=== PATIENT | male | born 1945 | race Caucasian/White ===

== ENCOUNTER 2017-05-23 13:37 | Inpatient (IN) | payer OTHER ==
[2017-05-23] VITALS (9 sets, daily range): BP systolic 113–143; BP diastolic 56–91
[~2017-05-23] VITALS: Ht 167.6 cm; Wt 108.0 kg
[2017-05-23 13:51] LABS: BASOPHIL COUNT 0.1 K/uL (0-0.1); EOSINOPHIL (%) 1.4 % (0-5); EOSINOPHIL COUNT 0.2 K/uL (0-0.3); HEMATOCRIT 43.5 % (38.0-50.0); IMMATURE GRANULOCYTE (%) 0.5 % (0.0-0.7); IMMATURE GRANULOCYTE COUNT 0.1 K/uL; INSTRUMENT ABS NEUTROPHIL CT 8.5 K/uL; LYMPHOCYTE COUNT 3.3 K/uL (1.0-2.8); MCH 29.3 PG (29.0-34.0); MCHC 33.1 G/DL (30.0-36.0); MCV 88.4 FL (86-99); MEAN PLAT.VOLUME 10.6 uM^3 (9.0-12.4); MONOCYTE (%) 5.5 % (3-12); MONOCYTE COUNT 0.7 K/uL (0-0.8); NEUTROPHIL (%) 66.1 % (45-76); NEUTROPHIL COUNT 8.5 K/uL (1.8-6.4); PLATELET COUNT 202 K/uL (156-360); RBC DIS.WIDTH-CV 13.7 % (11.8-14.6); RBC DIS.WIDTH-SD 44.1 % (39-53); RED BLOOD COUNT 4.92 M/uL (4.00-5.50); WHITE BLOOD COUNT 12.8 K/uL (4.1-10.2)
[2017-05-23 13:58] LABS: PROTHROMBIN TIME 11.7 SEC (10.2-12.9)
[2017-05-23 14:01] LABS: AMYLASE 51 IU/L (1-118); CHLORIDE 106 mEq/L (99-109); POTASSIUM 4.9 mEq/L (3.7-5.4); PTT 25.4 SEC (25-37); SODIUM 135 mEq/L (136-147)
[2017-05-23 14:03] LABS: GLUCOSE 261 mg/dL (70-99)
[2017-05-23 14:04] LABS: ANION GAP 12 MEQ/L (2-14)
[2017-05-23 14:06] LABS: SERUM ETHYL ALCOHOL < 10 mg/dL
[2017-05-23 14:07] LABS: GFR ESTIMATE (CALCULATED) 49 mL/min/
[2017-05-23 14:08] LABS: UREA NITROGEN (BUN) 16 mg/dL (9-23)
[2017-05-23 14:10] LABS: LIPASE 72 U/L (1.0-51.0)
[2017-05-23 14:13] LABS: TROP-I INTERPRETATION NEGATIVE; TROPONIN-I 0.02 ng/mL (0.0-0.30)
[2017-05-23 16:32] LABS: METH RESISTANT S AUREUS PCR NEGATIVE (NEGATIVE)
[2017-05-23 16:44] LABS: PROBE CHECK PASS; SPECIMEN PROCESSING CONTROL PASS
[2017-05-23] MEDS ORDERED: SIMVASTATIN40 MG PO (20:12)
[2017-05-23] MEDS ORDERED: METFORMIN HCL500 MG PO (20:13)
[2017-05-23] MEDS ORDERED: ALLOPURINOL100 MG PO (20:14)
[2017-05-23] MEDS ORDERED: LOPRESSOR50 MG PO (20:15)
[2017-05-23] MEDS ORDERED: NOVOLIN N100 UNITS/ SC (20:15)
[2017-05-23] MEDS ORDERED: LISINOPRIL20 MG PO (20:16)
[2017-05-23] MEDS ORDERED: NOVOLOG PE100 UNITS/ SC (20:17)
[2017-05-23 22:12] LABS: POINT-OF-CARE METER ID UU14208751
[2017-05-24] VITALS (10 sets, daily range): BP systolic 92–145; BP diastolic 36–80
[2017-05-24 01:21] LABS: TROP-I INTERPRETATION POSITIVE
[2017-05-24 01:37] LABS: TROPONIN-I 84.98 ng/mL (0.0-0.30)
[2017-05-24 05:44] LABS: BASOPHIL COUNT 0.1 K/uL (0-0.1); EOSINOPHIL (%) 0.6 % (0-5); EOSINOPHIL COUNT 0.1 K/uL (0-0.3); HEMATOCRIT 40.1 % (38.0-50.0); IMMATURE GRANULOCYTE (%) 0.4 % (0.0-0.7); INSTRUMENT ABS NEUTROPHIL CT 8.3 K/uL; LYMPHOCYTE COUNT 1.7 K/uL (1.0-2.8); MCHC 32.7 G/DL (30.0-36.0); MCV 88.7 FL (86-99); MEAN PLAT.VOLUME 11.2 uM^3 (9.0-12.4); MONOCYTE COUNT 0.7 K/uL (0-0.8); NEUTROPHIL (%) 76.8 % (45-76); NEUTROPHIL COUNT 8.3 K/uL (1.8-6.4); PLATELET COUNT 144 K/uL (156-360); RBC DIS.WIDTH-SD 44.9 % (39-53); RED BLOOD COUNT 4.52 M/uL (4.00-5.50); WHITE BLOOD COUNT 10.8 K/uL (4.1-10.2)
[2017-05-24 05:49] LABS: CHLORIDE 106 mEq/L (99-109); POTASSIUM 4.6 mEq/L (3.7-5.4); SODIUM 136 mEq/L (136-147)
[2017-05-24 05:51] LABS: GLUCOSE 245 mg/dL (70-99)
[2017-05-24 05:52] LABS: ANION GAP 8 MEQ/L (2-14)
[2017-05-24 05:54] LABS: GFR ESTIMATE (CALCULATED) 58 mL/min/
[2017-05-24 05:55] LABS: UREA NITROGEN (BUN) 17 mg/dL (9-23)
[2017-05-24 05:58] LABS: TROP-I INTERPRETATION POSITIVE
[2017-05-24 13:06] LABS: TROP-I INTERPRETATION POSITIVE; TROPONIN-I 31.74 ng/mL (0.0-0.30)
[2017-05-24] MEDS ORDERED: BRILINTA90 MG PO (15:55)
[2017-05-24] MEDS ORDERED: ASPIR-LOW81 MG PO (15:55)
[2017-05-24 16:18] LABS: POINT-OF-CARE METER ID UU13113803
== END 2017-05-24 17:31 | disposition home or self-care (01) | DRG 247 ==
LOC: EME 13:37 → CATH 13:50 → ENRESERV 13:59 → EME 14:11 → 2SOUTH 14:52 → 4WEST 14:52
PROVIDERS: Emergency Medicine; Internal Medicine Cardiovascular Disease
DX: I21.19 ST elevation (STEMI) myocardial infarction involving other coronary artery of inferior wall (principal); I25.10 Atherosclerotic heart disease of native coronary artery without angina pectoris; I95.9 Hypotension, unspecified; R00.1 Bradycardia, unspecified; I10 Essential (primary) hypertension; E11.9 Type 2 diabetes mellitus without complications; E78.5 Hyperlipidemia, unspecified
CPT/HCPCS: 80048; 81003; 82150; 82948; 83690; 84484; 85025; 85347; 85610; 85730; 86850; 86900; 86901; 87641; 90686; 90832; 93005; 93306; 94799; 99281; 99284; C1725; C1769; C1874; C1887; G0480; J0153; J0461; J1644; J1815; J2250; J3010; J7030